=== PATIENT | male | born 1945 | race African-American/Black ===

== ENCOUNTER 2019-11-02 08:11 | Inpatient (IN) | payer MEDICARE, OTHER ==
[~2019-11-02] VITALS: Ht 177.8 cm; Wt 121.8 kg
[2019-11-02] MEDS ORDERED: IOVERSOL 350 MG/ML 100 ML VIAL ONE (08:26)
[2019-11-02] MEDS ORDERED: SODIUM CHLORIDE 0.9% 100 ML ONE ×2 (08:26→08:44)
[2019-11-02] MEDS ORDERED: NiCARDipine HCL 25 MG in DEXTROSE 5%-WATER 240 ML IV PRN (08:26)
[2019-11-02 08:32] LABS: BASOPHILS % (AUTO) 0.9 % (0.0-2.0); EOSINOPHILS % (AUTO) 4.4 % (1.0-6.0); HEMATOCRIT 50.6 % (41-53); HEMOGLOBIN 16.5 g/dL (13.5-17.5); LYMPHOCYTES % (AUTO) 18.8 % (22.0-44.0); MEAN CORPUSCULAR HEMOGLOBIN 28.7 pg (26.0-34.0); MEAN CORPUSCULAR HGB CONC 32.6 G/dL (31.0-37.0); MEAN CORPUSCULAR VOLUME 88 fL (80-100); MONOCYTES # (AUTO) 0.4 K/uL (0.1-1.0); MONOCYTES % (AUTO) 6.5 % (2.0-9.0); NEUTROPHILS # (AUTO) 3.8 K/uL (1.8-7.7); NEUTROPHILS % (AUTO) 69.4 % (40.0-70.0); PLATELET COUNT (AUTO) 205 K/uL (150-450); RED BLOOD CELL COUNT(AUTO) 5.75 MIL/uL (4.50-5.90); RED CELL DISTRIBUTION WIDTH 13.5 % (11.5-14.5)
[2019-11-02 08:41] LABS: ANION GAP 11 mmol/L (8-16); CALCIUM, TOTAL 9.3 mg/dL (8.8-10.5); CARBON DIOXIDE 25 mmol/L (22-29); CHLORIDE 107 mmol/L (98-107); CREATININE 0.75 mg/dL (0.60-1.30); GLUCOSE,RANDOM 176 mg/dL (70-110); POTASSIUM 3.4 mmol/L (3.5-5.1); SODIUM SERUM 143 mmol/L (136-145); UREA NITROGEN, BLOOD 7 mg/dL (7-18)
[2019-11-02 08:43] LABS: GLOMERULAR FILTR. RATE CALC > 60 mL/min (>60)
[2019-11-02] MEDS ORDERED: IOVERSOL 350 MG/ML 150 ML VIAL ONE (08:44)
[2019-11-02] MEDS ORDERED: ONDANSETRON HCL 4 MG/2 ML VIAL IVP PRN ×3 (08:45→20:15)
[2019-11-02] MEDS ORDERED: ASPIRIN 81 MG CHEWABLE TABLET PO ONE (08:45)
[2019-11-02] MEDS ORDERED: ACETAMINOPHEN 325 MG TABLET PO PRN ×2 (08:45→20:15)
[2019-11-02 08:47] LABS: ALANINE AMINOTRANSFERASE 14 U/L (12-78); ALBUMIN 3.6 g/dL (3.4-5.0); ALKALINE PHOSPHATASE 155 U/L (46-116); ASPARTATE AMINOTRANSFERASE 13 U/L (15-37); BILIRUBIN,TOTAL 0.8 mg/dL (0.1-1.0); TOTAL PROTEIN, SERUM 7.4 g/dL (6.4-8.2)
[2019-11-02 08:55] LABS: PROTHROMBIN TIME 10.3 SEC (9.4-11.6)
[2019-11-02 12:00] VITALS: BP 205/111
[2019-11-02] MEDS ORDERED: INFLUENZA VIRUS VACCINE QVS 2019-20 (3YR+)/PF 60 MCG/0.5 ML SYRINGE IM ONE (13:30)
[2019-11-02 16:00] VITALS: BP 125/44
[2019-11-02] MEDS ORDERED: POTASSIUM CHLORIDE 10% 40 MEQ/30 ML LIQUID UDCUP PO PRN ×2 (17:45)
[2019-11-02] MEDS ORDERED: POTASSIUM CHLORIDE 20 MEQ ER TABLET PO PRN (17:45)
[2019-11-02] MEDS ORDERED: DEXTROSE 50%-WATER 25 GM/50 ML SYRINGE IVP PRN (18:00)
[2019-11-02] MEDS: POTASSIUM CHL 10 MEQ/WATER 50 ML IV PRN ×2 (18:02→18:16)
[2019-11-02] MEDS: POTASSIUM CHLORIDE 20 MEQ ER TABLET PO PRN (18:15)
[2019-11-02] MEDS: NiCARDipine HCL 25 MG in DEXTROSE 5%-WATER 240 ML IV PRN ×2 (19:22→19:38)
[2019-11-02] MEDS ORDERED: ACETAMINOPHEN 650 MG/20.3 ML SOLUTION UDCUP PO PRN (19:30)
[2019-11-02 20:00] VITALS: BP 183/87
[2019-11-02] MEDS ORDERED: HYDROCODONE/ACETAMINOPHEN 5-325 MG TABLET PO PRN (20:15)
[2019-11-02] MEDS ORDERED: ZOLPIDEM TARTRATE 5 MG TABLET PO PRN (20:15)
[2019-11-02] MEDS ORDERED: ALBUTEROL SULFATE 2.5 MG/0.5 ML NEB SOLUTION NEB PRN (20:15)
[2019-11-02] MEDS ORDERED: MORPHINE SULFATE 2 MG/ML SYRINGE IVP PRN (20:15)
[2019-11-02] MEDS ORDERED: IPRATROPIUM BROMIDE 0.5 MG/2.5 ML NEB SOLUTION NEB PRN (20:15)
[2019-11-02] MEDS ORDERED: BISACODYL 10 MG RECTAL RECTAL SUPPOSITORY PR PRN (20:15)
[2019-11-02] MEDS ORDERED: MAGNESIUM HYDROXIDE SUSPENSION 30 ML UDCUP PO PRN (20:15)
[2019-11-02] MEDS: INSULIN LISPRO 100 UNITS/ML SQ PRN (20:43)
[2019-11-02] MEDS: DOCUSATE SODIUM 100 MG CAPSULE PO SCH (21:00)
[2019-11-02 21:20] VITALS: BP 136/82
[2019-11-02] MEDS: HEPARIN SODIUM,PORCINE 5,000 UNITS/ML VIAL SQ SCH (23:39)
[2019-11-03] VITALS: BP 151/78
[2019-11-03] MEDS: POTASSIUM CHLORIDE 20 MEQ ER TABLET PO PRN (00:34)
[2019-11-03 04:00] VITALS: BP 142/73
[2019-11-03] MEDS: INSULIN LISPRO 100 UNITS/ML SQ PRN ×4 (06:33→20:56)
[2019-11-03 07:33] LABS: GLUCOSE,POINT OF CARE 143 MG/DL (70-110)
[2019-11-03 07:34] LABS: GLUCOSE,POINT OF CARE 285 MG/DL (70-110)
[2019-11-03 07:34] LABS: GLUCOSE,POINT OF CARE 148 MG/DL (70-110)
[2019-11-03] MEDS ORDERED: ATOR40TA28 PO (07:49)
[2019-11-03] MEDS ORDERED: METF-960 PO (07:50)
[2019-11-03] MEDS ORDERED: METO50 PO (07:52)
[2019-11-03] MEDS ORDERED: FURO20 PO (07:52)
[2019-11-03] MEDS ORDERED: SPIR25 PO (07:53)
[2019-11-03] MEDS ORDERED: AMLO10TA7 PO (07:54)
[2019-11-03] MEDS ORDERED: LOSA-88 PO (07:55)
[2019-11-03] MEDS ORDERED: TERA5CAP12 PO (07:56)
[2019-11-03] MEDS ORDERED: KDUR10 PO (07:58)
[2019-11-03 08:00] VITALS: BP 151/78
[2019-11-03] MEDS: HEPARIN SODIUM,PORCINE 5,000 UNITS/ML VIAL SQ SCH ×3 (08:15→23:29)
[2019-11-03] MEDS: DOCUSATE SODIUM 100 MG CAPSULE PO SCH ×2 (08:15→20:46)
[2019-11-03 12:00] VITALS: BP 164/84
[2019-11-03 15:40] LABS: GLUCOSE,POINT OF CARE 149 MG/DL (70-110)
[2019-11-03 16:00] VITALS: BP 142/64
[2019-11-03] MEDS: NiCARDipine HCL 25 MG in DEXTROSE 5%-WATER 240 ML IV PRN (18:16)
[2019-11-03] MEDS ORDERED: SPIRONOLACTONE 25 MG TABLET PO ONE (19:45)
[2019-11-03] MEDS ORDERED: AmLODIPine BESYLATE 10 MG TABLET PO ONE (19:45)
[2019-11-03] MEDS ORDERED: LOSARTAN POTASSIUM 50 MG TABLET PO ONE (19:45)
[2019-11-03 20:00] VITALS: BP 164/79
[2019-11-03] MEDS: TERAZOSIN HCL 5 MG CAPSULE PO SCH (20:46)
[2019-11-03] MEDS: METOPROLOL TARTRATE 50 MG TABLET PO SCH (21:00)
[2019-11-04] VITALS: BP 141/72
[2019-11-04 04:00] VITALS: BP 145/74
[2019-11-04] MEDS: INSULIN LISPRO 100 UNITS/ML SQ PRN ×4 (05:39→21:29)
[2019-11-04 05:41] LABS: ALANINE AMINOTRANSFERASE 12 U/L (12-78); ALKALINE PHOSPHATASE 121 U/L (46-116); ANION GAP 3 mmol/L (8-16); ASPARTATE AMINOTRANSFERASE 9 U/L (15-37); BILIRUBIN,TOTAL 0.7 mg/dL (0.1-1.0); CALCIUM, TOTAL 8.9 mg/dL (8.8-10.5); CARBON DIOXIDE 29 mmol/L (22-29); CHLORIDE 107 mmol/L (98-107); CHOL/HDL RATIO 5.8 (4.2-7.3); CHOLESTEROL 152 mg/dL (131-200); CREATININE 0.81 mg/dL (0.60-1.30); GLUCOSE,RANDOM 161 mg/dL (70-110); HDL CHOLESTEROL 26 mg/dL (40-60); LDL CHOL (CALC.) 107 mg/dL (0-130); POTASSIUM 3.5 mmol/L (3.5-5.1); SODIUM SERUM 139 mmol/L (136-145); THYROID STIMULATING HORMONE 0.61 uIU/mL (0.36-3.74); TOTAL PROTEIN, SERUM 6.4 g/dL (6.4-8.2); TRIGLYCERIDES 93 mg/dL (15-150); UREA NITROGEN, BLOOD 12 mg/dL (7-18)
[2019-11-04 05:44] LABS: GLOMERULAR FILTR. RATE CALC > 60 mL/min (>60)
[2019-11-04 05:47] LABS: GLUCOSE,POINT OF CARE 138 MG/DL (70-110)
[2019-11-04 05:47] LABS: GLUCOSE,POINT OF CARE 212 MG/DL (70-110)
[2019-11-04 05:48] LABS: GLUCOSE,POINT OF CARE 205 MG/DL (70-110)
[2019-11-04 05:48] LABS: GLUCOSE,POINT OF CARE 156 MG/DL (70-110)
[2019-11-04] MEDS: POTASSIUM CHLORIDE 20 MEQ ER TABLET PO PRN (06:01)
[2019-11-04 08:00] VITALS: BP 152/72
[2019-11-04] MEDS: ATORVASTATIN CALCIUM 40 MG TABLET PO SCH (08:45)
[2019-11-04] MEDS: DOCUSATE SODIUM 100 MG CAPSULE PO SCH ×2 (08:45→21:26)
[2019-11-04] MEDS: HEPARIN SODIUM,PORCINE 5,000 UNITS/ML VIAL SQ SCH ×3 (08:45→23:17)
[2019-11-04] MEDS: ASPIRIN 325 MG TABLET PO SCH (08:45)
[2019-11-04] MEDS: LOSARTAN POTASSIUM 50 MG TABLET PO SCH (08:45)
[2019-11-04] MEDS: FUROSEMIDE 20 MG TABLET PO SCH (08:45)
[2019-11-04] MEDS: POTASSIUM CHLORIDE 10 MEQ ER TABLET PO SCH (08:45)
[2019-11-04] MEDS: METOPROLOL TARTRATE 50 MG TABLET PO SCH (08:46)
[2019-11-04] MEDS ORDERED: SPIRONOLACTONE 25 MG TABLET PO SCH (09:00)
[2019-11-04] MEDS ORDERED: AmLODIPine BESYLATE 10 MG TABLET PO SCH ×2 (09:00)
[2019-11-04] MEDS ORDERED: ASPIRIN 81 MG CHEWABLE TABLET PO SCH (09:00)
[2019-11-04] MEDS ORDERED: LOSARTAN POTASSIUM 50 MG TABLET PO SCH (09:00)
[2019-11-04] MEDS: SPIRONOLACTONE 25 MG TABLET PO SCH (09:54)
[2019-11-04 12:00] VITALS: BP 144/57
[2019-11-04] MEDS: HydrALAZINE HCL 25 MG TABLET PO SCH ×2 (15:21→23:17)
[2019-11-04 16:00] VITALS: BP 172/74
[2019-11-04] MEDS ORDERED: NIFEdipine 30 MG ER TABLET PO ONE (16:30)
[2019-11-04 17:31] LABS: GLUCOSE,POINT OF CARE 162 MG/DL (70-110)
[2019-11-04 17:34] LABS: GLUCOSE,POINT OF CARE 182 MG/DL (70-110)
[2019-11-04 20:00] VITALS: BP 163/70
[2019-11-04] MEDS: METOPROLOL TARTRATE 25 MG TABLET PO SCH (21:25)
[2019-11-04] MEDS: TERAZOSIN HCL 5 MG CAPSULE PO SCH (21:26)
[2019-11-05] VITALS: BP 121/47
[2019-11-05 02:27] VITALS: BP 138/71
[2019-11-05 04:44] VITALS: BP 142/78
[2019-11-05] MEDS: INSULIN LISPRO 100 UNITS/ML SQ PRN (05:55)
[2019-11-05 06:48] LABS: GLUCOSE,POINT OF CARE 172 MG/DL (70-110)
[2019-11-05 07:08] VITALS: BP 121/74
[2019-11-05 08:19] VITALS: BP 145/72
[2019-11-05] MEDS: HydrALAZINE HCL 25 MG TABLET PO SCH (08:22)
[2019-11-05] MEDS: HEPARIN SODIUM,PORCINE 5,000 UNITS/ML VIAL SQ SCH (08:22)
[2019-11-05] MEDS: ASPIRIN 325 MG TABLET PO SCH (08:23)
[2019-11-05] MEDS: SPIRONOLACTONE 25 MG TABLET PO SCH (08:23)
[2019-11-05] MEDS: LOSARTAN POTASSIUM 50 MG TABLET PO SCH (08:24)
[2019-11-05] MEDS: POTASSIUM CHLORIDE 10 MEQ ER TABLET PO SCH (08:24)
[2019-11-05] MEDS: FUROSEMIDE 20 MG TABLET PO SCH (08:24)
[2019-11-05] MEDS: ATORVASTATIN CALCIUM 40 MG TABLET PO SCH (08:25)
[2019-11-05] MEDS: METOPROLOL TARTRATE 25 MG TABLET PO SCH (08:25)
[2019-11-05] MEDS ORDERED: NIFEdipine 60 MG ER TABLET PO SCH (09:00)
[2019-11-05] MEDS: DOCUSATE SODIUM 100 MG CAPSULE PO SCH (09:00)
[2019-11-05 12:35] VITALS: BP 126/57
[2019-11-05] MEDS ORDERED: HYDR-2924 PO (14:01)
[2019-11-05] MEDS ORDERED: NIFE-39 PO (14:26)
[2019-11-05] MEDS ORDERED: METO25 PO (14:27)
[2019-11-05] MEDS ORDERED: APIX2.5T PO (14:27)
[2019-11-05 18:12] LABS: GLUCOMETER DEV NAME(LOC) 5S.1; GLUCOSE,POINT OF CARE 249 MG/DL (70-110)
[2019-11-05 18:13] LABS: GLUCOMETER DEV NAME(LOC) 5S.1; GLUCOSE,POINT OF CARE 138 MG/DL (70-110)
== END 2019-11-05 14:45 | disposition home or self-care (01) | DRG 65 ==
LOC: EMS 08:14 → ICU 10:27 → 5S 11-05 02:10
PROVIDERS: ADMIT Internal Medicine; ATTEND Internal Medicine
DX: I63.9 Cerebral infarction, unspecified (principal); I16.1 Hypertensive emergency; I10 Essential (primary) hypertension; E66.9 Obesity, unspecified; Z68.38 Body mass index [BMI] 38.0-38.9, adult; E11.65 Type 2 diabetes mellitus with hyperglycemia; Z68.35 Body mass index [BMI] 35.0-35.9, adult
CPT/HCPCS: 70496; 70551; 83036; 84132; 84443; 87081; 92523; 93005; 93306; 97110; 97116; 97162; 97166; 97535; 99291; G0378; J1644; J3480; J3490; J7050; J7060